=== PATIENT | male | born 1980 | race Caucasian/White ===

== ENCOUNTER 2017-03-28 11:37 | Observation (INO) ==
[2017-03-28] MEDS ORDERED: 0.9 % Sodium Chloride 1,000 ML IVC ONE (11:51)
[2017-03-28] MEDS ORDERED: *HR* HYDROmorphone (PF) 1 MG/ML SYRINGE IVP ONE ×3 (11:51→14:47)
[2017-03-28] MEDS ORDERED: Pramoxine 15 GM FOAM Package TP STA (11:52)
[2017-03-28 12:11] LABS: Basophils % 0.2 %; Eosinophils # 0.1 K/mcL (0.0-0.6); Eosinophils % 0.4 %; Hematocrit 45.7 % (37.5-50.1); Hemoglobin 15.7 g/dL (12.9-16.9); Immature Granulocytes % 0.5 % (0-4); Immature Platelets 2.3 % (1.1-6.1); Lymphocytes # 1.2 K/mcL (0.6-4.6); Lymphocytes % 7.3 %; Mean Corpuscular HGB Conc 34.4 g/dL (31.6-35.5); Mean Corpuscular Volume 90.1 fL (83.0-100.0); Mean Platelet Volume 9.6 fL (9.4-12.4); Monocytes % 6.2 %; Neutrophils # 13.8 K/mcL (1.6-8.9); Platelet Count 224 K/mcL (140-400); Red Blood Count 5.07 M/mcL (4.19-5.50); Red Cell Distribution Width 11.9 % (11.5-14.5); Segmented Neutrophils % 85.4 %
--- NOTE | 2017-03-28 12:11 | Emergency Department Note ---
Disposition Clinical Impression: Perirectal abscess Disposition: Admitted As Inpatient Condition: Good Forms: ED Satisfaction Letter, Work/School Release General Adult HPI - General Chief complaint: ED General Medical Stated complaint: Rectal Pain Time Seen by Provider: 03/28/17 11:43 Source: patient Mode of arrival: ambulatory Limitations: no limitations Nursing Notes Reviewed: Yes Vital Signs Reviewed: Yes - History of Present Illness HPI Narrative: Patient presents to the ED with the chief complaint of rectal pain. Patient states that as of 3 days ago he suddenly developed fairly intense rectal and perirectal pain and swelling. He has had no rectal trauma or history of hemorrhoids or infections. 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 He reports that he noticed some swelling in his perineum. No difficulty urinating. It is somewhat painful to defecate, but no diarrhea, melena or hematochezia. No penile discharge. No testicular tenderness, no fever, nausea or vomiting. Reports the pain is continuing to get worse and wanted to get checked out. Otherwise healthy. Pain Scale: 10 - Related Data Allergies Allergy/AdvReac Type Severity Reaction Status Date / Time No Known Allergies Allergy Verified 03/28/17 11:40 All systems ED: reviewed and negative except as stated. Constitutional: Denies: fever Cardiovascular: Denies: palpitations Respiratory: Denies: dyspnea Gastrointestinal: Reports: as per HPI Genitourinary: Reports: as per HPI Past Medical History - Past Medical History Attestation: Yes The following information was validated with the patient. Source: patient Medical history: Reports: no medical history Psychiatric history: Reports: no psych history - Social History Smoking Status: Never smoker Smokeless Tobacco Status: No Alcohol use: Reports: heavy Drug use: Reports: none Physical Exam - General Limitations: no limitations General appearance: alert, in no apparent distress, other (Appears to be in pain , slightly tachycardic) - Head Head exam: atraumatic, normocephalic, normal inspection - Chest Chest inspection: Present: normal inspection, symmetric chest wall rise - Respiratory Respiratory exam: Present: normal lung sounds bilaterally - Cardiovascular Cardiovascular exam: Present: regular rate, normal rhythm, normal heart sounds - Abdominal Exam Abdominal exam: Present: soft, Non-Tender. Absent: tenderness, distention, guarding, rebound, rigidity - Rectal Exam [place] present during exam: Yes Rectal exam: Present: normal rectal tone, tenderness (Patient has tenderness along his peritoneum and there are a few small punctate holes just anterior to the anus. There is no obvious fissure, he does have some residual stool, and appears that there could be a developing perirectal abscess versus cellulitis, but there is no fluctuance. His perineum is slightly indurated and tender. There are no signs of necrosis or crepitus). Absent: fecal impaction, hemorrhoids - Male exam: Present: normal inspection - Extremities Exam Extremities exam: Present: normal inspection, full ROM. Absent: tenderness, pedal edema Course Course Narrative: Patient presenting with rectal pain. No obvious hemorrhoid. Could be related to developing perirectal abscess. CT his abdomen and pelvis with IV contrast to further evaluate. Pain control and fluids - Reevaluation(s) Reevaluation #1: Spoke with the on-call surgeon, patient has not had anything to drink since last night and will remain nothing by mouth, will likely go to the OR. Time: 14:16 Vital Signs Temperature 97.8 F 03/28/17 11:38 Pulse Rate 105 03/28/17 11:38 Respiratory Rate 18 03/28/17 11:38 Blood Pressure 133/90 03/28/17 11:38 O2 Sat by Pulse Oximetry 97 03/28/17 11:38 Temperature 97.8 F 03/28/17 11:38 Pulse Rate 105 03/28/17 11:38 Respiratory Rate 18 03/28/17 11:38 Blood Pressure 133/90 03/28/17 11:38 O2 Sat by Pulse Oximetry 97 03/28/17 11:38 Oxygen Delivery Oxygen Delivery Room Air Medical Decision Making - Lab Data Result diagrams: 03/28/17 12:00 03/28/17 12:00 Lab Results 03/28/17 03/28/17 03/28/17 Range/Units 12:00 12:00 12:40 WBC 16.2 H (4.3-11.1) K/mcL RBC 5.07 (4.19-5.50) M/mcL Hgb 15.7 (12.9-16.9) g/dL Hct 45.7 (37.5-50.1) % MCV 90.1 (83.0-100.0) fL MCH 31.0 (28.0-33.3) pg MCHC 34.4 (31.6-35.5) g/dL RDW 11.9 (11.5-14.5) % Plt Count 224 (140-400) K/mcL MPV 9.6 (9.4-12.4) fL Immature Gran % 0.5 (0-4) % Seg Neutrophils % 85.4 % Lymphocytes % 7.3 % Monocytes % 6.2 % Eosinophils % 0.4 % Basophils % 0.2 % Neutrophils # 13.8 H (1.6-8.9) K/mcL Lymphocytes # 1.2 (0.6-4.6) K/mcL Monocytes # 1.0 (0.0-1.3) K/mcL Eosinophils # 0.1 (0.0-0.6) K/mcL Basophils # 0.0 (0.0-0.2) K/mcL Immature Plt Fraction 2.3 (1.1-6.1) % Sodium 139 (136-145) mEq/L Potassium 3.9 (3.5-4.5) mEq/L Chloride 106 (98-109) mEq/L Carbon Dioxide 25 (19-29) mEq/L BUN 14 (8-26) mg/dL Creatinine 1.00 (0.72-1.25) mg/dL Est GFR ( Amer) > 60 (> 60) Est GFR (Non-Af Amer) > 60 (> 60) BUN/Creatinine Ratio 14 (6-26) Glucose 116 H (70-99) mg/dL Calculated Osmolality 289 (280-300) Calcium 9.1 (8.6-10.8) mg/dL C-Reactive Protein 107 H (Less than 5) mg/L Urine Color Yellow (Yellow) Urine Clarity Clear (Clear) Urine pH 7.0 (5.0-8.0) pH Units Ur Specific [place] 1.014 (1.010-1.025) Urine Protein Negative (Neg-Trace) mg/dL Urine Glucose (UA) Normal (Normal) mg/dL Urine Ketones Negative (Negative) mg/dL Urine Blood Negative (Negative) Urine Nitrite Negative (Negative) Urine Bilirubin Negative (Negative) Urine Urobilinogen Normal (Normal) mg/dL Ur Leukocyte Esterase Negative (Negative) Ur Culture Indicated? NO (NO) Attestation Statement - Attestation Attestation: I, Sawyer Field DO, examined this patient [id number] and my medical decision-making was reviewed with Dr. Jj Bhatti, Resident Physician. I agree with the documented findings, disposition and treatment plan as described except to the extent set forth below. Please see my progress notes for details. A 36-year-old male presents to emergency room complaining of rectal pain and discharge. Over the last several days she has noticed discomfort pain swelling and irritation at the anterior aspect of his rectal vault. Patient denies any trauma. Denies any manipulation. Denies any rectal intercourse or issues. Patient has redness swelling irritation a small punctate hole in the anterior aspect over the anal margin. There is no discharge noted this time but there is what appears to be stool either from the rectal opening or this hole at this time. Patient does have thickening of the skin just anterior towards the scrotum. He has visible skin thickening with redness and tenderness to the anterior aspect of the rectal opening. There is no crepitus or deformity noted at this time. The testicles and scrotum do not appear to be involved. There is concern for perirectal or rectal abscess as well as superficial cellulitis. Patient will be evaluated by CT imaging and labs looking for possible abscess formation and inflammation or cellulitis of the lower pelvis and. The anal perirectal perineal area. See detailed documentation of physical exam, medical intervention, medical decision-making and disposition resident physician's note. Patient is otherwise healthy and up-to-date on immunizations
[2017-03-28 12:25] LABS: BUN/Creatinine Ratio 14 (6-26); Blood Urea Nitrogen 14 mg/dL (8-26); Calcium 9.1 mg/dL (8.6-10.8); Carbon Dioxide 25 mEq/L (19-29); Chloride 106 mEq/L (98-109); Glucose 116 mg/dL (70-99); Osmolality,Calculated 289 (280-300); Potassium 3.9 mEq/L (3.5-4.5); Sodium 139 mEq/L (136-145); eGFR For African Americans > 60 (> 60); eGFR For Non-African Americans > 60 (> 60)
[2017-03-28 12:39] LABS: C-Reactive Protein 107 mg/L (Less than 5)
[2017-03-28 13:04] LABS: Bilirubin,Urine Negative (Negative); Blood,Urine Negative (Negative); Clarity,Urine Clear (Clear); Color,Urine Yellow (Yellow); Glucose,Urine (UA) Normal (Normal); Ketones,Urine Negative (Negative); Leukocyte Esterase,Urine Negative (Negative); Nitrite,Urine Negative (Negative); Protein,Urine Negative (Neg-Trace); Specific Gravity,Urine 1.014 (1.010-1.025); Urobilinogen,Urine Normal (Normal)
--- NOTE | 2017-03-28 14:53 | General Surg History&Physical ---
<Nettie Calderon - Last Filed: 03/28/17 15:09> Date of Encounter: 03/28/17 Time of Encounter: 02:30 Assessment and Plan (1) Perirectal abscess Current Visit: Yes Status: Acute 3 days of worsening pain in the rectal area. CT shows There is a 2.6 x 2 x 5.3 cm fluid attenuating collection with milder enhancement, related to the lower portion of the rectum. WBC = 16.2 Will go to surgery today for I&D. History of Present Illness HPI: Mr. Gore is a 36 year old male with no significant past medical history presented to the ED with 3 days of progressively worsening rectal pain that is pointly tender of an area of increase redness. Denies recent fever, coughing. BM are regular and most recent BM was this morning soft. Denies hematochezia, melena, nausea, vomiting,dysuria. Patient denies prior surgery, never exposed to anesthesia. No family hx of trouble with anesthesia. Did drink half a cup of coffee at 8:30am but has not eat or drank anything since. No hx of IVDA or smoking but does admit to 8-10 beers per day. Past Med Surg Social Fam HX - Past Medical History Medical history: no medical history Psychiatric history: no psych history - Social History Smoking Status: Never smoker Smokeless Tobacco Status: No Alcohol use: heavy Drug use: none Medications and Allergies Meloxicam [Meloxicam] 15 mg PO DAILY 03/28/17 [History] Omeprazole [PriLOSEC] 40 mg PO DAILY 03/28/17 [History] 3 Allergy/AdvReac Type Severity Reaction Status Date / Time No Known Allergies Allergy Verified 03/28/17 14:30 Review of Systems All systems PM: A 10-system review of systems was performed and is negative for pertinent findings except as documented above in the HPI. General Surgery Exam Initial Vital Signs Temp Pulse Resp BP Pulse Ox 97.8 F 105 18 133/90 97 03/28/17 11:38 03/28/17 11:38 03/28/17 11:38 03/28/17 11:38 03/28/17 11:38 - Additional Findings Constitutional: Alert, in no acute distress, well nourished, well developed. Head: Normocephalic, atraumatic, normal contour and symmetric, no masses, lesions or scars Heart: Normal, regular rate and rhythm, no murmurs Lungs: Clear to auscultation, no wheezes, rales, or rhonchi Abdomen: Soft, nondistended, nontender, and no masses palpable, bowel sounds present and normal, no guarding or rigidity. Extremities: No clubbing, cyanosis, or edema, radial pulse +2/4, capillary refill <2sec. : rectal exam tender on anterior wall, no visible blood present, left gluteal inferior aspect just lateral to the gluteal cleft is a red hard, indurated area of about 5 cm by 3cm, no involvement of scrotum seen, Skin: Skin warm and dry, no lesions, no rashes, no jaundice Neurologic: Cranial nerves II through XII grossly intact, no focal deficits, strength within normal limits in all extremities Psych: Cooperative with exam, good eye contact, cognitive function intact, judgment good insight good, speech clear, thought process logical, and goal directed Results - Labs 03/28/17 12:00 03/28/17 12:00 Abnormal lab results WBC 16.2 K/mcL (4.3-11.1) H 03/28/17 12:00 Neutrophils # 13.8 K/mcL (1.6-8.9) H 03/28/17 12:00 Glucose 116 mg/dL (70-99) H 03/28/17 12:00 C-Reactive Protein 107 mg/L (Less than 5) H 03/28/17 12:00 All other labs normal. <Marilin Mireles - Last Filed: 03/28/17 16:30> Date of Encounter: 03/28/17 Assessment and Plan (1) Leukocytosis Current Visit: Yes Status: Acute The assessment and plan as outlined above was discussed with the patient and/or family members who expressed understanding and agreement. All questions were answered. due to perirectal abscess start abx plan I/D in OR trend Qualifiers: Leukocytosis type: unspecified Qualified Code(s): D72.829 - Elevated white blood cell count, unspecified (2) Alcohol abuse Current Visit: Yes Status: Chronic The assessment and plan as outlined above was discussed with the patient and/or family members who expressed understanding and agreement. All questions were answered. ativan prn agitation (3) Perirectal abscess Current Visit: Yes Status: Acute The assessment and plan as outlined above was discussed with the patient and/or family members who expressed understanding and agreement. All questions were answered. (4) Perirectal abscess Current Visit: Yes Status: Acute The assessment and plan as outlined above was discussed with the patient and/or family members who expressed understanding and agreement. All questions were answered. discussed [facility] patient has labs, CAT scanner point and physical exam findings. We will plan an incision and drainage in the OR under general anesthesia of his perirectal abscess. Risks and benefits were discussed with the patient and he wishes to proceed. He will be admitted overnight for observation. He is allowed eat after surgery. We will hydrate him with IV fluids, when necessary pain control, stool softeners, antibiotics. History of Present Illness Chief complaint: perianal pain HPI: Mr. Gore is a 36 year old male who 2-3 days ago started experiencing perianal/ perirectal pain. He denies fevers,chills or night sweats. Patient has never experienced anything like this before. The pain became so severe he came to the ED where and CT scan was done showing either a 3.2 or 5 cm abscess but no description where (quadrant, anterior, posterior, etc) the perirectal abscess was located was given. Patient has been drinking about 8 beers daily for the last few months Past Med Surg Social Fam HX - Past Medical History Source: patient Medical history: GERD, other (EtoH abuse) - Past Surgical History Surgical History: no surgical history - Family History Grandmother History Unknown: Yes Review of Systems All systems PM: A 10-system review of systems was performed and is negative for pertinent findings except as documented above in the HPI. General Surgery Exam Initial Vital Signs Temp Pulse Resp BP Pulse Ox 97.8 F 105 18 133/90 97 03/28/17 11:38 03/28/17 11:38 03/28/17 11:38 03/28/17 11:38 03/28/17 11:38 - General physical appearance well developed, well nourished, no distress, no pain - Eyes PERRL, normal ocular movement - ENT normal mucosa, normocephalic - Respiratory normal expansion, clear to auscultation - Cardiovascular Cardiovascular exam: Present: RRR, no murmurs/rubs/gallops - Abdomen Abdomen general surgery: Present: bowel sounds present, soft, non tender - Rectum Rectum: Present: other (anterior perirectal abscess has started to spontaneously drain bloody pus) - Integumentary Integumentary general surgery: Present: warm and dry - Neurologic Present: CN 2-12 grossly intact - Musculoskeletal Present: normal posture - Psychiatric Psychiatric general surgery: Present: A&Ox3, speech is normal Results - Labs 03/28/17 12:00 03/28/17 12:00 Abnormal lab results WBC 16.2 K/mcL (4.3-11.1) H 03/28/17 12:00 Neutrophils # 13.8 K/mcL (1.6-8.9) H 03/28/17 12:00 Glucose 116 mg/dL (70-99) H 03/28/17 12:00 C-Reactive Protein 107 mg/L (Less than 5) H 03/28/17 12:00 All other labs normal. - Imaging CT scan - pelvis: report reviewed, image reviewed - Attending Attestation I examined this patient and my medical decision-making was reviewed with the Resident Physician. I agree with the documented findings, disposition and treatment plan as described except to the extent set forth below.
[2017-03-28] MEDS ORDERED: Lidocaine -MPF 4% 5 ML AMPUL ONE (15:01)
[2017-03-28] MEDS ORDERED: Lidocaine -MPF 2% 2 ML VIAL ONE (15:01)
[2017-03-28] MEDS ORDERED: *HR* Midazolam HCl 2 MG/2 ML VIAL ONE (15:01)
[2017-03-28] MEDS ORDERED: *HR* Succinylcholine 200 MG/10 ML VIAL IVP ONE (15:01)
[2017-03-28] MEDS ORDERED: *HR* FentaNYL (PF) 100 MCG/2 ML VIAL ONE (15:01)
[2017-03-28] MEDS ORDERED: *HR* Rocuronium Bromide 50 MG/5 ML VIAL ONE (15:01)
[2017-03-28] MEDS ORDERED: *HR* Propofol 200 MG/20 ML VIAL IVP ONE ×2 (15:02→15:06)
--- NOTE | 2017-03-28 15:11 | Anesthesia Evaluation PreOp ---
Date of Encounter: 03/28/17 Time of Encounter: 15:07 - Past History Planned Operation: I and D perirectal abcess Cardiac History: Denies any Significant Hx Pulmonary History: Denies Any Significant HX Other Medical History: GERD (well controlled) Anesthesia History: Past Anesthesia (none, no family hx of anes complications) Alcohol Use: heavy Drug use: none Medications and Allergies Meloxicam [Meloxicam] 15 mg PO DAILY 03/28/17 [History] Omeprazole [PriLOSEC] 40 mg PO DAILY 03/28/17 [History] 3 Allergy/AdvReac Type Severity Reaction Status Date / Time No Known Allergies Allergy Verified 03/28/17 14:30 - Meds/Allergy Pre-op Review Medications Reviewed: Yes Allergies Reviewed: Yes Beta Blockers on Current Med List: No Anesthesia Results - Labs 03/28/17 12:00 03/28/17 12:00 Anesthesia Exam Vital Signs/O2 Sat, Most Current Temp Pulse Resp BP Pulse Ox 97.8 F 105 18 133/90 97 03/28/17 11:38 03/28/17 11:38 03/28/17 11:38 03/28/17 11:38 03/28/17 11:38 Height: 1.83m Weight: 107kg - HEENT Pupil (Motor): Pupils equal, EOMI Mallampati: II Teeth: Poor dentition Oral Opening: Greater than 3 - ROTARY ADJUSTER LOC: Oriented ROTARY ADJUSTER Motor: Normal RUE, Normal LUE, Normal RLE, Normal LLE, Normal Face ROTARY ADJUSTER Sensory: Normal: RUE, LUE, RLE, LLE, Face - Cardiac Rhythm: Regular - Pulmonary Breath Sounds: bilateral Clear Respiratory Effort: Symmetrical Anesthesia Assess/Plan ASA Score: 2, E Modified Basim Scale for Level of Consciousness: Anixous, agitated or restless Anesthetic Plan: General (r/b/a discussed, questions answered, consent obtained) Monitoring Plan: Standard Monitors Recovery Plan: PACU
[2017-03-28] MEDS ORDERED: CefOXitin 2,000 MG VIAL IVPB ONE (15:46)
[2017-03-28] MEDS ORDERED: *HR* HYDROmorphone 2 MG/ML SYRINGE ONE (16:04)
[2017-03-28] MEDS ORDERED: Dexamethasone 4 MG/ML VIAL ONE (16:08)
[2017-03-28] MEDS ORDERED: Ondansetron 4 MG/2 ML VIAL ONE (16:08)
--- NOTE | 2017-03-28 16:20 | Operative Note ---
Date of procedure: 03/28/17 Pre-op diagnosis: anterior perirectal abscess Post-op diagnosis: same Procedure: Incision and drainage of anterior perirectal abscess Complications: none immediate Anesthesia: DOLORES Surgeon: Marilin Mireles Estimated blood loss (cc): 5 Specimen: aerobic/anaerobic cultures Condition: stable Disposition: PACU Procedure in Detail: Patient was brought to the operating suite on the transport cart. Sign in was performed and everyone was in agreement. Anesthesia was induced and patient was endotracheally intubated by anesthesia without incident. Patient was then placed prone on the operating table with all pressure points padded by foam and pillows. TinCoBen was applied to the bilateral buttocks and 2 inch silk tape were used for exposure and retraction. The perianal area was shaved. The perianal area and bilateral buttock were prepped and draped in the usual sterile fashion with Betadine. Timeout was performed again everyone is in agreement. Patient regarding spontaneously started to drain from the anterior perirectal abscess. The area was incision and drained with an 11 blade and an elliptical in fashion. Copious amounts of pus exuded from the abscess and aerobic and anaerobic cultures were obtained. A hemostat and sterile Q-tips were placed within the abscess cavity to break up any loculations. The abscess cavity was copiously irrigated with sterile saline. The abscess was then packed with quarter inch plain packing, covered with 4 x 4 gauze and secured with Medipore tape. The patient tolerated the procedure well. All lap and instrument counts were correct at the end of the case. The patient was then placed supine on the transport cart. He was awoken by anesthesia and extubated without incident. He was taken to PACU in stable condition.
[2017-03-28] MEDS ORDERED: *HR* Metoprolol 5 MG/5 ML VIAL IVP PRN (17:08)
[2017-03-28] MEDS ORDERED: *HR* Promethazine 25 MG/ML VIAL IVP PRN (17:08)
[2017-03-28] MEDS ORDERED: Naloxone 0.4 MG/ML INJ IVP PRN (17:08)
[2017-03-28] MEDS ORDERED: Ondansetron 4 MG/2 ML VIAL IVP PRN (17:08)
[2017-03-28] MEDS ORDERED: *HR* LORazepam 2 MG/ML VIAL IVP PRN (17:08)
--- NOTE | 2017-03-28 17:09 | Anesthesia Evaluation Post Op ---
Date of Encounter: 03/28/17 Time of Encounter: 17:07 - Vital Signs Vital Signs: Vital Signs/O2 Sat, Most Current Temp Pulse Resp BP Pulse Ox 99.2 F 97 16 122/81 97 03/28/17 16:57 03/28/17 16:57 03/28/17 16:57 03/28/17 16:57 03/28/17 16:57 - Lungs Lungs: Clear Ascult./Percussion - Airway Airway: Non-obstructed - Cardiovascular Regular Rate - Mental Status Mental Status: Alert & Oriented, Answers Appropriately - Pain Pain Scale: 0 Pain Scale used: Numeric (1 - 10) - Nausea Vomiting Nausea Vomiting: Not Present - Hydration Hydration: NPO - Discharge PostOp Status: Transfer Patient to floor Attestation: I have assessed this patient and find they meet discharge criteria.
[2017-03-28] MEDS: 0.9 % Sodium Chloride 1,000 ML IVC SCH (17:44)
[2017-03-28] MEDS: *HR* HYDROmorphone (PF) 1 MG/ML SYRINGE IVP PRN ×3 (17:46→23:51)
[2017-03-28] MEDS: Piperacillin/Tazobactam 3.375 GM in D5% in Water (Mini-Bag+) 100 ML IVPB SCH (21:46)
[2017-03-28] MEDS: *HR* OxyCODONE/APAP 5/325 TABLET PO PRN (21:54)
[2017-03-29] MEDS: Piperacillin/Tazobactam 3.375 GM in D5% in Water (Mini-Bag+) 100 ML IVPB SCH (04:26)
[2017-03-29] MEDS: *HR* HYDROmorphone (PF) 1 MG/ML SYRINGE IVP PRN ×4 (04:26→13:05)
[2017-03-29 04:37] LABS: Basophils % 0.1 %; Eosinophils % 0.3 %; Hematocrit 42.7 % (37.5-50.1); Hemoglobin 14.7 g/dL (12.9-16.9); Immature Granulocytes % 0.7 % (0-4); Lymphocytes # 1.3 K/mcL (0.6-4.6); Lymphocytes % 8.5 %; Mean Corpuscular HGB Conc 34.4 g/dL (31.6-35.5); Mean Corpuscular Hemoglobin 31.1 pg (28.0-33.3); Mean Corpuscular Volume 90.5 fL (83.0-100.0); Mean Platelet Volume 9.7 fL (9.4-12.4); Monocytes # 0.8 K/mcL (0.0-1.3); Monocytes % 5.7 %; Neutrophils # 12.4 K/mcL (1.6-8.9); Platelet Count 232 K/mcL (140-400); Red Blood Count 4.72 M/mcL (4.19-5.50); Red Cell Distribution Width 11.8 % (11.5-14.5); Segmented Neutrophils % 84.7 %
[2017-03-29 07:00] VITALS: BP 113/72
[2017-03-29] MEDS: 0.9 % Sodium Chloride 1,000 ML IVC SCH (10:36)
[2017-03-29] MEDS: *HR* OxyCODONE/APAP 5/325 TABLET PO PRN (11:18)
--- NOTE | 2017-03-29 12:02 | Discharge Summary ---
<Nettie Calderon - Last Filed: 03/29/17 13:13> Date of Encounter: 03/29/17 Time of Encounter: 11:00 - Discharge Diagnosis (1) Perirectal abscess Priority: Primary Status: Acute - Discharge Medications Prescriptions: Docusate [Colace] 100 mg PO BID #30 capsule Oxycodone HCl/Acetaminophen [Percocet 5-325 mg Tablet] 1 each PO Q4-6H PRN #30 tablet PRN Reason: Pain Sulfamethoxazole/Trimeth DS [Bactrim DS] 1 tab PO BID #20 tablet Home Medications: Meloxicam [Meloxicam] 15 mg PO DAILY 03/28/17 [History] Omeprazole [PriLOSEC] 40 mg PO DAILY 03/28/17 [History] Docusate [Colace] 100 mg PO BID #30 capsule 03/29/17 [Rx] Oxycodone HCl/Acetaminophen [Percocet 5-325 mg Tablet] 1 each PO Q4-6H PRN #30 tablet 03/29/17 [Rx] Sulfamethoxazole/Trimeth DS [Bactrim DS] 1 tab PO BID #20 tablet 03/29/17 [Rx] Allergies/Adverse Reactions: 3 Allergy/AdvReac Type Severity Reaction Status Date / Time No Known Allergies Allergy Verified 03/28/17 14:30 General Surgery Exam Initial Vital Signs Temp Pulse Resp BP Pulse Ox 97.8 F 105 18 133/90 97 03/28/17 11:38 03/28/17 11:38 03/28/17 11:38 03/28/17 11:38 03/28/17 11:38 - Additional Findings Constitutional: Alert, in no acute distress, well nourished, well developed. Head: Normocephalic, atraumatic, normal contour and symmetric, no masses, lesions or scars Heart: Normal, regular rate and rhythm, no murmurs Lungs: Clear to auscultation, no wheezes, rales, or rhonchi Abdomen: Soft, nondistended, nontender, and no masses palpable, bowel sounds present and normal, no guarding or rigidity. Extremities: No clubbing, cyanosis, or edema, radial pulse +2/4, capillary refill <2sec. : ~1cm circular incision anterior to the anus on the R gluteal cleft wall, packing pulled and new 4x4 gauze and medipore tape placed, no involvement of scrotum seen, Skin: Skin warm and dry, no lesions, no rashes, no jaundice Neurologic: Cranial nerves II through XII grossly intact, no focal deficits, strength within normal limits in all extremities Psych: Cooperative with exam, good eye contact, cognitive function intact, judgment good insight good, speech clear, thought process logical, and goal directed Date of admission: 03/28/17 14:42 Primary care physician: Beck Khan MD - Patient Status Disposition: Home, Self-Care Condition: Good Functional capacity at discharge: independent ambulation Overall status at discharge: patient is progressing back to baseline - Discharge Instructions Instructions: Sulfamethoxazole/Trimethoprim (By mouth), Oxycodone/ Acetaminophen (By mouth), Laxative, Stool Softeners (By mouth) Follow Up With: Beck Khan MD [Primary Care Provider] - Marilin Mireles MD [Partnered Physician] - Forms: Inpatient Work/School Release Additional Instructions: Instructions: -For pain: Take prescribed pain medications as directed and as needed. Do not go to work until 24hrs after using Percocet. An ice bag against the rectal area may be helpful. -You should take two or three sitz baths daily. Sit for about 15-20 minutes and after bowel movement for the first couple of days. You should also keep a cotton or gauze dressing tucked against the anal opening to absorb any drainage or bleeding. It is normal to have some bleeding and discharge from the wound for several weeks. -Normal activities can be resumed as tolerated. Avoid strenuous activity for 1 week after your procedure. -The use of dry toilet paper should be avoided. After bowel movements use a wet Kleenex, cotton, or tucks pads to clean yourself. -Eat a regular diet -If you have some bleeding, discharge, or itching during your recovery this is normal. - If constipation has been a problem or if you are taking pain pills which may make you constipated, take a fiber supplement, such as Metamucil or Citrucel, or a stool softener, such as Docusate Sodium/Colace, twice daily. Drinking plenty of fluids will also help with constipation. When do I call my surgeon? Call your surgeon if you have any of the following symptoms. You may be experiencing a complication of your surgery. General increased rectal pain Fever of 101F or higher Difficulty urinating Large amount of bleeding that does not stop Call tomorrow and make a follow-up appointment with Dr. Mireles or one of the surgery nurse within 1 week. ] - Diet and Activity Activity: increase activity as tolerated Diet: advance to your usual diet - Hospital Course Hospital course: Mr. Gore is a 36 year old male with no significant past medical history presented with presented to the ED with 3 days of progressively worsening rectal pain that is pointly tender of an area of increase redness and found to have a anterior perirectal abscess. Patient was taken to the OR and placed on general anesthesia for incision and drainage. A ~1cm incision was created and packing placed with a 4x4 gauze and mediport tape dressing. Patient's vitals remained stable and he was afebrile overnight. Packing was removed the next morning and patient was discharged home with Percocet, Colace, and Bactrim DS ( 10 day course). Patient instructed to make an appointment to call surgery for a f/u appointment within the next week. - Time Spent with Patient Total time spent providing and/or coordinating discharge services: Labs on day of discharge: Labs from last 24 hours 03/29/17 04:25 WBC 14.6 H RBC 4.72 Hgb 14.7 Hct 42.7 MCV 90.5 MCH 31.1 MCHC 34.4 RDW 11.8 Plt Count 232 MPV 9.7 Immature Gran % 0.7 Seg Neutrophils % 84.7 Lymphocytes % 8.5 Monocytes % 5.7 Eosinophils % 0.3 Basophils % 0.1 Neutrophils # 12.4 H Lymphocytes # 1.3 Monocytes # 0.8 Eosinophils # 0.0 Basophils # 0.0 Preliminary micro results at discharge 03/28/17 16:30 Surgical Biopsy Culture - Preliminary Other-Specify in Comments <Marilin Mireles - Last Filed: 03/29/17 14:49> Date of Encounter: 03/29/17 - Discharge Diagnosis (1) Leukocytosis Priority: Secondary Status: Acute Qualifiers: Leukocytosis type: unspecified Qualified Code(s): D72.829 - Elevated white blood cell count, unspecified (2) Alcohol abuse Status: Chronic (3) Perirectal abscess Priority: Primary Status: Acute General Surgery Exam Initial Vital Signs Temp Pulse Resp BP Pulse Ox 97.8 F 105 18 133/90 97 03/28/17 11:38 03/28/17 11:38 03/28/17 11:38 03/28/17 11:38 03/28/17 11:38 - General physical appearance well developed, well nourished, no distress - Eyes PERRL, normal ocular movement - ENT normal mucosa, normocephalic - Neck trachea midline - Respiratory normal expansion, clear to auscultation - Cardiovascular Cardiovascular exam: Present: RRR - Rectum Rectum: Present: other (decreased erythema, scale reclamation tender) - Neurologic Present: CN 2-12 grossly intact - Musculoskeletal Present: normal posture - Psychiatric Psychiatric general surgery: Present: A&Ox3, speech is normal Date of admission: 03/28/17 14:42 Primary care physician: Beck Khan MD Discharging clinician: Marilin Mireles Anticipated date of discharge: 03/29/17 - Patient Status Functional capacity at discharge: independent ambulation Overall status at discharge: patient is progressing back to baseline - Hospital Course Hospital course: Mr. Gore is a 36 year old male - Time Spent with Patient Total time spent providing and/or coordinating discharge services: Labs on day of discharge: Labs from last 24 hours 03/29/17 04:25 WBC 14.6 H RBC 4.72 Hgb 14.7 Hct 42.7 MCV 90.5 MCH 31.1 MCHC 34.4 RDW 11.8 Plt Count 232 MPV 9.7 Immature Gran % 0.7 Seg Neutrophils % 84.7 Lymphocytes % 8.5 Monocytes % 5.7 Eosinophils % 0.3 Basophils % 0.1 Neutrophils # 12.4 H Lymphocytes # 1.3 Monocytes # 0.8 Eosinophils # 0.0 Basophils # 0.0 Preliminary micro results at discharge 03/28/17 16:30 Surgical Biopsy Culture - Preliminary Other-Specify in Comments Gram Negative Wilfredo Gram Negative Wilfredo#2 - Attending Attestation I examined this patient and my medical decision-making was reviewed with the Resident Physician. I agree with the documented findings, disposition and treatment plan as described except to the extent set forth below.
[2017-03-29] MEDS ORDERED: Piperacillin/Tazobactam 3.375 GM in D5% in Water (Mini-Bag+) 100 ML IVPB SCH (16:22)
== END 2017-03-29 14:16 | disposition home or self-care (01) ==
LOC: EMEROO 11:37 → 3ANU 11:37
PROVIDERS: ADMIT Surgery; ATTEND Surgery